=== PATIENT | female | born 1970 | race Caucasian/White ===

== ENCOUNTER 2016-08-15 04:14 | Emergency (ER) | payer BC ==
[~2016-08-15] VITALS: Ht 167.6 cm; Wt 100.8 kg
[~2016-08-15 04:14] MED LIST: LOSA25TA5 PO; SIMV20TA3 PO
[2016-08-15] MEDS ORDERED: METOCLOPRAMIDE 5 MG/ML, 2ML ONE (04:46)
[2016-08-15] MEDS ORDERED: DIPHENHYDRAMINE 50 MG/ML, 1ML ONE (04:46)
[2016-08-15] MEDS ORDERED: SODIUM CHLORIDE 0.9% 1,000ML IVBOLUS ONE (05:00)
[2016-08-15] MEDS ORDERED: DIPHENHYDRAMINE 50 MG/ML, 1ML IVPush ONE (05:00)
[2016-08-15] MEDS ORDERED: METOCLOPRAMIDE 5 MG/ML, 2ML IVPush ONE (05:00)
[2016-08-15] MEDS ORDERED: ONDANSETRON 2MG/ML, 2ML ONE (05:09)
[2016-08-15] MEDS ORDERED: KETOROLAC 30 MG/1 ML ONE (05:27)
[2016-08-15] MEDS ORDERED: KETOROLAC 30 MG/1 ML IVPush ONE (05:30)
[2016-08-15] MEDS ORDERED: ONDANSETRON 2MG/ML, 2ML IVPush ONE (05:30)
[2016-08-15 06:07] VITALS: BP 109/56
== END 2016-08-15 06:23 | disposition home or self-care (01) ==
LOC: ED 06:12
DX: F51.01 Primary insomnia (principal); R51 Headache; I10 Essential (primary) hypertension; E11.65 Type 2 diabetes mellitus with hyperglycemia; E78.5 Hyperlipidemia, unspecified
CPT/HCPCS: 96361; 96374; 96375; 99284; J1200; J1885; J2405; J2765; J7030

== ENCOUNTER 2018-12-06 20:36 | Emergency (ER) | payer BC, OTHER ==
[~2018-12-06] VITALS: Ht 167.6 cm; Wt 105.0 kg
[2018-12-06 20:43] VITALS: BP 145/86
== END 2018-12-06 21:22 | disposition home or self-care (01) ==
LOC: ED 21:15
DX: S61.212A Laceration without foreign body of right middle finger without damage to nail, initial encounter (principal); X58.XXXA Exposure to other specified factors, initial encounter; Y93.89 Activity, other specified; Y92.89 Other specified places as the place of occurrence of the external cause; Y99.8 Other external cause status
CPT/HCPCS: 12001; 90471; 90715